=== PATIENT | male | born 1950 | race Caucasian/White ===

== ENCOUNTER 2021-02-05 14:26 | Inpatient (IN) | payer MEDICARE, MEDICAID, SELFPAY ==
[2021-02-05] VITALS (12 sets, daily range): BP systolic 130–216; BP diastolic 69–181; PULSE 50–63; RESP 15–20; TEMP 36.1–36.9; O2SAT 94–98; BMI 24.2
--- NOTE | 2021-02-05 14:37 | ECG_ITS ---
[facility] Test Date: 2021-02-05 Pat Name: Марина Dawson Department: Room: Gender: Male Certified Prosthetist: : 1950 Requested By: Jose J Ch Order Number: [id number] Arnulfo MD: Filomena Brooks M.D. Measurements Intervals [place] Rate: 50 P: 86 GA: 212 QRS: 36 QRSD: 69 T: 76 QT: 445 QTc: 408 Interpretive Statements SINUS BRADYCARDIA WITH FIRST DEGREE AV BLOCK LOW QRS VOLTAGE IN PRECORDIAL LEADS [QRS DEFLECTION < 1.0 mV IN CHEST LEADS] POSSIBLE RIGHT VENTRICULAR CONDUCTION DELAY [RSR (QR) IN V1/V2] ST DEVIATION AND MODERATE T-WAVE ABNORMALITY, CONSIDER ANTERIOR ISCHEMIA [-0.1+ mV T WAVE IN V3/V4] INTERPRETATION BASED ON A DEFAULT AGE OF 40 YEARS No previous ECG available for comparison Electronically Signed On 02-06-2021 9:46:38 CDT by Filomena Brooks M.D. [id number]
--- NOTE | 2021-02-05 14:37 | CT_ITS ---
WS: [id number] CT HEAD NONCONTRAST HISTORY: Symptoms of Acute Stroke TECHNIQUE: Contiguous axial imaging performed through the brain in 2.5 mm imaging. Bone and soft tiss ue windows. Sagittal and coronal reformats reviewed. All CT scans at [facility] use at ast one of these dose optimization techniques: automated exposure control; mA and/or kV adjustment pe r patient size (includes targeted exams where dose is matched to clinical indication); or iterative r econstruction. DLP: 4 9.26 mGy-cm. COMPARISON: None available. No acute intracranial hemorrhage, midline shift or mass effect. Mild atrophy and mild chronic microvascular ischemic disease. Lacunar infarcts in the basal ganglia b ilaterally. Ventricles: Normal size with no hydrocephalus. Paranasal sinuses: Mucoperiosteal thickening in the posterior LEFT ethmoid air cells. Mastoid air cells: Well pneumatized. Calvarium and scalp: Skull is intact with no soft tissue edema or swelling. CT/CT head wo con* [id number] IMPRESSION: 1. No acute intracranial hemorrhage or edema. 2. Mild atrophy and chronic ischemic disease. No acute infarct identified. Notified Jose J Alfred DO at 02/05/2021 2:59 PM.
--- NOTE | 2021-02-05 14:37 | XR_ITS ---
WS: [id number] Exam: XR chest 1V portable [id number] Date/Time of Exam: 02/05/2021 2:37 PM Reason For Exam: dyspnea No priors. The lungs are fully inflated and clear. Normal cardiomediastinal structures and bony elements. No ple ural effusions. XR/XR chest 1V portable [id number] IMPRESSION: 1. No acute cardiopulmonary process.
--- NOTE | 2021-02-05 14:43 | ED_ITS ---
HPI - Neuro Symptoms/Deficit General: Chief Complaint: Neuro Symptoms/Deficit Stated Complaint: neuro symptoms Time Seen by Provider: 02/05/21 14:32 History of Present Illness: HPI Narrative: 70 male brought to the emergency room by caregiver they noticed a onset of facial weakness at about noon today he was talking funny. Did not seem to aching since he has difficult time enunciating words. 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 No chest pain no recent illnesses. Onset (ago): minute(s) Time: 14:26 Last Observed Normal: 12:00 Timing confirmed by: family member Location: speech and right face (Sparing of the forehead) Severity: mild Relieving factors: none Exacerbating factors: none On Anticoagulants: No Associated symptoms: Deny chest pain, cough, diaphoresis, fevers/chills, headache(s), anorexia, malaise, nausea, seizures, short of breath, syncope, tingling, vomiting or weakness Treatments Prior to Arrival: none Review of Systems Const: Denies: malaise or diaphoresis ENMT: Denies: throat pain, ear or mastoid pain, nasal discharge or nasal congestion Card: Denies: chest pain or syncope Resp: Denies: dyspnea, productive cough or non-productive cough GI: Denies: nausea or vomiting : Denies: flank pain, dysuria, urinary frequency or urinary urgency Skin/Breast: Denies: rash or pruritus Neuro: Denies: headache(s) PFS ED PFSH: Medical History (Updated 02/06/21 @ 08:17 by Jose J Alfred DO) History of coronary artery disease History of dementia History of hypertension History of TIA (transient ischemic attack) Physical deconditioning Surgical History (Updated 02/05/21 @ 16:58 by Rito Hitchcock MD) History of coronary angioplasty with insertion of stent History of left lower extremity amputation Family History (Updated 02/05/21 @ 16:58 by Rito Hitchcock MD) Other CAD (coronary artery disease) Social History (Updated 02/05/21 @ 16:58 by Rito Hitchcock MD) Smoking and tobacco status: current every day smoker Alcohol intake: current Alcohol intake frequency: few times a week Substance/Drug Use: current Substance/Drug use type: Marijuana NIH stroke score NIHSS: Level Of Consciousness - 1a: 0 Level Of Consciousness Questions - 1b: Both Correct Level Of Consciousness Commands - 1c: Both Correct Best Gaze - 2: Normal Visual Jerome - 3: No Visual Loss Facial Palsy - 4: Partial Paralysis Motor Arm Right - 5: No Drift Motor Arm Left - 5: No Drift Motor Leg Right - 6: No Drift Motor Leg Left - 6: No Drift Limb Ataxia - 7: Absent Sensory - 8: Normal Best Language - 9: No Aphasia Dysarthia - 10: Mild/Moderate Dysarthia Extinction And Inattention - 11: 0 Score: Total Score: 3 Physical Exam Const: COMMON NORMALS: no acute distress GENERAL APPEARANCE: cooperative and comfortable ORIENTATION/CONSCIOUSNESS: Yes awake, Yes oriented to person, Yes oriented to place and Yes oriented to time HENMT: COMMON NORMALS: normocephalic, atraumatic, hearing grossly normal bilaterally and external ears normal HEAD & SCALP: normocephalic and atraumatic EXTERNAL EAR: Yes external ears normal Eye: OTHER: Unable to close the right eye. Follows commands but not able to fully close. Neck/C-Spine: COMMON NORMALS: no JVD Resp: COMMON NORMALS: normal respiratory effort, No retractions, No use of accessory muscles and clear to auscultation bilaterally AUSCULTATION: clear to auscultation bilaterally Cardio: COMMON NORMALS: no JVD, regular rate, regular rhythm and No murmurs present (Cardio) RATE: regular rate RHYTHM: regular rhythm GI: COMMON NORMALS: Soft to palpation and No hepatosplenomegaly present AUSCULTATION: Yes normoactive bowel sounds PALPATION: Yes Soft to palpation, No Tenderness to palpation present (GI), No Guarding due to palpation present (GI) and Yes No hepatosplenomegaly present Extremity: COMMON NORMALS: normal to inspection, capillary refill normal, no clubbing, cyanosis or edema, no calf tenderness and no pedal edema Neuro: SENSORIUM/ORIENTATION: Yes oriented to person, Yes oriented to place and Yes oriented to time OTHER: Stroke score as documented. He has a facial droop on the lower side of the right face has some sparing of the upper facial muscles. Skin: COMMON NORMALS: no rashes or lesions noted GENERAL SKIN EXAM: no rashes or lesions noted Course Vital Signs: Vital signs: Vital Signs Temperature 98.2 F 02/06/21 07:00 Pulse Rate 59 L 02/06/21 07:00 Respiratory Rate 16 02/06/21 07:00 Blood Pressure 137/70 02/06/21 07:00 Pulse Oximetry 92 02/06/21 03:41 MDM - Neuro Symptoms/Deficit MDM Narrative: Medical decision making narrative: On his exam is a very low stroke score of only 2 he is at the edge of the window for TPA with minor deficits. His presentation is suggestive of Zayas's palsy with the exception of description of a rather sudden onset. This is somewhat concerning I reviewed the case with the on-call neurologist from [facility] for stroke call they do not recommend TPA at this time because of the low NIH score as well as the minimal deficit. They do recommend admitting for an MRI and observation for worsening of symptoms. Lab Data: Labs: Lab Results 02/05/21 02/05/21 02/05/21 Range/Units 14:55 14:55 14:55 WBC 8.1 (4.0-10.0) 10^3/ uL RBC 5.00 (4.1-5.3) 10^6/u L Hgb 15.6 (11.7-16.6) g/dL Hct 48.3 (42.0-52.0) % MCV 96.6 H (80-94) fL MCH 31.2 (28.0-34.0) pg MCHC 32.3 (30.0-36.0) g/dL RDW 15.2 H (12.1-15.1) % Plt Count 274 (130-400) 10^3/c mm MPV 10.7 H (7.4-10.4) fL Neut % (Auto) 53.6 % Lymph % (Auto) 32.1 % [place] % (Auto) 7.4 % Eos % (Auto) 5.4 % Baso % (Auto) 1.0 % Neut # (Auto) 4.34 (1.8-7.7) 10^3/u L Lymph # (Auto) 2.6 (0.8-4.8) 10^3/u L [place] # (Auto) 0.6 (0.2-0.9) 10^3/u L Eos # (Auto) 0.4 (0.0-0.8) 10^3/u L Baso # (Auto) 0.1 (0.0-0.1) 10^3/u L Nucleated RBC % (a uto) 0 % Nucleated RBCs # 0.0 /100WBC ESR (0-10) mm/hr PT 13.70 (12.1-14.9) SECO NDS INR 1.02 (0.8-1.2) APTT 34.3 (23.9-36.7) SECO NDS Sodium 141 (136-145) mmol/L Potassium 3.7 (3.5-5.1) mmol/L Chloride 108 H (98-107) mmol/L Carbon Dioxide 23 (22-29) mmol/L Anion Gap 13.7 (5-19) BUN 11 (8-23) mg/dL Creatinine 0.6 L (0.7-1.2) mg/dL GFR Calculation Not Reportable Glucose 92 (65-115) mg/dL POC Glucose (70-110) mg/dL Calculated Osmolal ity 291 (285-295) mOsm/k g Calcium 8.8 (8.5-10.5) mg/dL Total Bilirubin 0.5 (0.15-1.2) mg/dL AST 22 (0-40) U/L ALT 18 (0-41) U/L Alkaline Phosphata se 81 (40-130) IU/L C-Reactive Protein (0.0-4.9) mg/L Total Protein 6.8 (6.6-8.7) g/dL Albumin 3.9 (3.5-5.2) g/dL Globulin 2.9 (1.3-4.6) g/dL TSH (0.27-4.20) uIU/ mL Rheumatoid Factor (0-14) IU/mL HIV 1&2 Ab & HIV 1 Ag (Non-Reactiv) HIV 1&2 Antibody (Non-Reactiv) 02/05/21 02/05/21 02/05/21 Range/Units 14:55 14:55 14:55 WBC (4.0-10.0) 10^3/ uL RBC (4.1-5.3) 10^6/u L Hgb (11.7-16.6) g/dL Hct (42.0-52.0) % MCV (80-94) fL MCH (28.0-34.0) pg MCHC (30.0-36.0) g/dL RDW (12.1-15.1) % Plt Count (130-400) 10^3/c mm MPV (7.4-10.4) fL Neut % (Auto) % Lymph % (Auto) % [place] % (Auto) % Eos % (Auto) % Baso % (Auto) % Neut # (Auto) (1.8-7.7) 10^3/u L Lymph # (Auto) (0.8-4.8) 10^3/u L [place] # (Auto) (0.2-0.9) 10^3/u L Eos # (Auto) (0.0-0.8) 10^3/u L Baso # (Auto) (0.0-0.1) 10^3/u L Nucleated RBC % (a uto) % Nucleated RBCs # /100WBC ESR 3 (0-10) mm/hr PT (12.1-14.9) SECO NDS INR (0.8-1.2) APTT (23.9-36.7) SECO NDS Sodium (136-145) mmol/L Potassium (3.5-5.1) mmol/L Chloride (98-107) mmol/L Carbon Dioxide (22-29) mmol/L Anion Gap (5-19) BUN (8-23) mg/dL Creatinine (0.7-1.2) mg/dL GFR Calculation Glucose (65-115) mg/dL POC Glucose (70-110) mg/dL Calculated Osmolal ity (285-295) mOsm/k g Calcium (8.5-10.5) mg/dL Total Bilirubin (0.15-1.2) mg/dL AST (0-40) U/L ALT (0-41) U/L Alkaline Phosphata se (40-130) IU/L C-Reactive Protein 2.0 (0.0-4.9) mg/L Total Protein (6.6-8.7) g/dL Albumin (3.5-5.2) g/dL Globulin (1.3-4.6) g/dL TSH 0.56 (0.27-4.20) uIU/ mL Rheumatoid Factor 21.0 H (0-14) IU/mL HIV 1&2 Ab & HIV 1 Ag (Non-Reactiv) HIV 1&2 Antibody (Non-Reactiv) 02/05/21 02/05/21 Range/Units 14:55 15:01 WBC (4.0-10.0) 10^3/ uL RBC (4.1-5.3) 10^6/u L Hgb (11.7-16.6) g/dL Hct (42.0-52.0) % MCV (80-94) fL MCH (28.0-34.0) pg MCHC (30.0-36.0) g/dL RDW (12.1-15.1) % Plt Count (130-400) 10^3/c mm MPV (7.4-10.4) fL Neut % (Auto) % Lymph % (Auto) % [place] % (Auto) % Eos % (Auto) % Baso % (Auto) % Neut # (Auto) (1.8-7.7) 10^3/u L Lymph # (Auto) (0.8-4.8) 10^3/u L [place] # (Auto) (0.2-0.9) 10^3/u L Eos # (Auto) (0.0-0.8) 10^3/u L Baso # (Auto) (0.0-0.1) 10^3/u L Nucleated RBC % (a uto) % Nucleated RBCs # /100WBC ESR (0-10) mm/hr PT (12.1-14.9) SECO NDS INR (0.8-1.2) APTT (23.9-36.7) SECO NDS Sodium (136-145) mmol/L Potassium (3.5-5.1) mmol/L Chloride (98-107) mmol/L Carbon Dioxide (22-29) mmol/L Anion Gap (5-19) BUN (8-23) mg/dL Creatinine (0.7-1.2) mg/dL GFR Calculation Glucose (65-115) mg/dL POC Glucose 86 (70-110) mg/dL Calculated Osmolal ity (285-295) mOsm/k g Calcium (8.5-10.5) mg/dL Total Bilirubin (0.15-1.2) mg/dL AST (0-40) U/L ALT (0-41) U/L Alkaline Phosphata se (40-130) IU/L C-Reactive Protein (0.0-4.9) mg/L Total Protein (6.6-8.7) g/dL Albumin (3.5-5.2) g/dL Globulin (1.3-4.6) g/dL TSH (0.27-4.20) uIU/ mL Rheumatoid Factor (0-14) IU/mL HIV 1&2 Ab & HIV 1 Ag Non-reactive (Non-Reactiv) HIV 1&2 Antibody Non-reactive (Non-Reactiv) Discharge Plan Discharge Patient Disposition: Placed in Observation Admit Provider: Rito Hitchcock Clinical Impression: Cerebrovascular accident, Zayas's palsy Coding Level of Care Code ED Gasoline Tester for [facility] Fwd Exam Comprehensive
[2021-02-05 15:01] LABS: Basophils # 0.1 10^3/uL (0.0-0.1); Eosinophils # 0.4 10^3/uL (0.0-0.8); Eosinophils % 5.4 %; Hematocrit 48.3 % (42.0-52.0); Hemoglobin 15.6 g/dL (11.7-16.6); Lymphocytes # 2.6 10^3/uL (0.8-4.8); Lymphocytes % 32.1 %; Mean Corpuscular HGB Conc 32.3 g/dL (30.0-36.0); Mean Corpuscular Hemoglobin 31.2 pg (28.0-34.0); Mean Corpuscular Volume 96.6 fL (80-94); Mean Platelet Volume 10.7 fL (7.4-10.4); Monocytes # 0.6 10^3/uL (0.2-0.9); Monocytes % 7.4 %; Neutrophils # 4.34 10^3/uL (1.8-7.7); Neutrophils % 53.6 %; Nucleated Red Blood Cells % 0 %; Platelet Count 274 10^3/cmm (130-400); Red Cell Distribution Width 15.2 % (12.1-15.1); White Blood Count 8.1 10^3/uL (4.0-10.0)
--- NOTE | 2021-02-05 15:13 | PC.NURSE ---
pt showing hypertensive. retook BP on another machine and pt was normotensive. pt not given labetalol.
[2021-02-05 15:15] LABS: Glucose Point of Care 86 mg/dL (70-110)
[2021-02-05 15:15] LABS: INR 1.02 (0.8-1.2)
[2021-02-05 15:16] LABS: Partial Thromboplastin Time 34.3 SECONDS (23.9-36.7)
[2021-02-05 15:25] LABS: Alanine Aminotransferase 18 U/L (0-41); Albumin Level 3.9 g/dL (3.5-5.2); Alkaline Phosphatase 81 IU/L (40-130); Anion Gap 13.7 (5-19); Aspartate Amino Transferase 22 U/L (0-40); Blood Urea Nitrogen 11 mg/dL (8-23); Calcium 8.8 mg/dL (8.5-10.5); Carbon Dioxide 23 mmol/L (22-29); Chloride 108 mmol/L (98-107); Globulin 2.9 g/dL (1.3-4.6); Glucose 92 mg/dL (65-115); Osmolality Calculated 291 mOsm/kg (285-295); Potassium 3.7 mmol/L (3.5-5.1); Sodium 141 mmol/L (136-145); Total Bilirubin 0.5 mg/dL (0.15-1.2); Total Protein 6.8 g/dL (6.6-8.7)
--- NOTE | 2021-02-05 15:47 | MRR_ITS ---
PROCEDURE INFORMATION: Exam: MR Head Without Contrast Exam date and time: 02/05/2021 5:56 PM Age: 70 years old Clinical indication: Weakness, facial; Patient HX: Right side facial droop, possible CVA; Additional info: PT did not tolerate mri well. I packed his head with cushions and spoke with him about the importance of holding still. PT. Would not allow any extra time to repeat any of the images. TECHNIQUE: Imaging protocol: MR of the head without contrast. Total images: 215 COMPARISON: CT head wo con* [id number] 02/05/2021 2:35 PM FINDINGS: Limitations: Motion artifact. Brain: Cerebral and cerebellar atrophy with ventricular dilatation greater than that anticipated for patient's chronological age. No abnormal signal on the diffusion-weighted sequence to suggest restrictive diffusion or cytotoxic edema thus no evidence of active or acute intracranial pathologic process. No definitive evidence for acute or subacute infarction, hemorrhagic event, mass or neoplastic process, vascular malformation, generalized edema or demyelination evident. Moderate small vessel ischemic disease with senile periventricular leukomalacia. Cerebral ventricles: Normal. No ventriculomegaly. Bones/joints: Unremarkable. Paranasal sinuses: No visible active paranasal sinus disease. Mastoid air cells: Normal as visualized. No mastoid effusion. Orbital cavity: Orbital structures as imaged intact. Soft tissues: Unremarkable. MR/MR head wo con* [id number] IMPRESSION: 1. No definitive evidence of acute intracranial pathologic process. 2. Motion artifact limits diagnostic quality of this evaluation.
--- NOTE | 2021-02-05 16:50 | PM.HP ---
Providers/Chief Complaint Admitting Physician: Rito Hitchcock MD Chief Complaint: neuro symptoms History of Present Illness Марина Dawson is a 70 year old male with a past medical history of CAD status post stenting x1, history of left below-knee amputation for infection/sepsis, dementia, history of transient ischemic attack 1 year ago transferred to [facility], who is currently under the care of a family friend, who is a COMMUNITY HEALTH PROGRAM COORDINATOR, he requires total assistance of activities of daily living by family friend, does not ambulate, is wheelchair-bound, requires assistance with feeding, activities of daily living, transfers, his dementia has been stable for the last year or so, no slow decline, no recent hospitalizations, is a smoker. According to patient, he lives with his family friend, and his who is a COMMUNITY HEALTH PROGRAM COORDINATOR, who is his caregiver, his day-to-day activity is watching TV, staying around the house, he is dependent on the COMMUNITY HEALTH PROGRAM COORDINATOR for activities of daily living. LAKSHMI tells me that last night, his cheeks seem much more puffy than usual, but they diagnosed notice anything in particular, he went to bed at about 1030. She came in this morning at about 8, and he told her that she he had stayed up all night so he wanted to sleep in a little bit, so she left and came back at around noon or so, when he told her that he thought he had a stroke, due to right-sided facial droop and inability to close his eyelid, no weakness on the right side no right upper or right lower extremity weakness, no paresthesias, no slurring of his speech, no visual deficits,. COMMUNITY HEALTH PROGRAM COORDINATOR does tell me that he had generalized weakness, for the last year, that has not changed significantly. In the emergency room, patient NIH stroke scale was 2, he was out of the TPA window, neurologist at [facility] recommended inpatient monitoring, with an MRI. Hospitalist team was called for admission for Zayas's palsy versus CVA. During my examination he is actually quite strong on the right side, right upper right lower extremity, he does have a right facial droop, moderate, with inability to fully close right eyelid, no slurring of her speech. COMMUNITY HEALTH PROGRAM COORDINATOR does tell me that roughly 2 weeks ago, he had a spider bite to the chest, they do get frequent takes in the house, they have dogs, but she tells me that she base him regularly, did not notice any tick bites except the spider bite on the his chest. Review of Systems Const: Denies: fever(s), chills, fatigue or malaise Eyes: Denies: change in vision or blurry vision ENMT: Denies: throat pain or nasal congestion Card: Denies: chest pain, palpitations, irregular heart rhythm, edema, lightheadedness, pre-syncope, dyspnea on exertion or orthopnea Resp: Denies: dyspnea, productive cough, non-productive cough or wheezing GI: Denies: abdominal pain, nausea, vomiting, hematemesis, diarrhea, constipation, hematochezia or melena : Denies: flank pain, difficulty urinating, dysuria or urinary frequency Musc: Denies: neck pain, back pain or extremity pain Skin/Breast: Reports: rash Neuro: Reports: difficulty walking; Denies: headache(s), numbness in extremities, weakness in extremities, sensory changes, lack of coordination, frequent falls, dizziness, vertigo, confusion, Slurred speech present or difficulty communicating thoughts Psych: Denies: anxiety or depression Endo: Denies: polyuria or polydipsia Medications/Allergies Home Medications Medication Instructions Recorded Confirmed Last Taken Type clopidogrel 75 mg PO DAILY 02/05/21 02/05/21 02/05/21 History donepezil 10 mg PO DAILY 02/05/21 02/05/21 02/05/21 History escitalopram oxalate 10 mg PO DAILY 02/05/21 02/05/21 02/05/21 History ipratropium-albuterol [Combivent 1 puff INHALATION DAILY 02/05/21 02/05/21 02/05/21 History Respimat] multivitamin 1 tab PO DAILY 02/05/21 02/05/21 02/05/21 History Allergies Allergy/AdvReac Type Severity Reaction Status Date / Time Penicillins Allergy Unknown Unknown Verified 02/05/21 15:40 PFSH Acute PFSH: Medical History (Updated 02/05/21 @ 17:00 by Rito Hitchcock MD) History of coronary artery disease History of dementia History of hypertension History of TIA (transient ischemic attack) Physical deconditioning Surgical History (Updated 02/05/21 @ 16:58 by Rito Hitchcock MD) History of coronary angioplasty with insertion of stent History of left lower extremity amputation Family History (Updated 02/05/21 @ 16:58 by Rito Hitchcock MD) Other CAD (coronary artery disease) Social History (Updated 02/05/21 @ 16:58 by Rito Hitchcock MD) Smoking and tobacco status: current every day smoker Alcohol intake: current Alcohol intake frequency: few times a week Substance/Drug Use: current Substance/Drug use type: Marijuana Vitals/I&O/Wt Last Vital Signs Temp 97.0 F L 02/05/21 14:33 Pulse 50 L 02/05/21 16:40 Resp 20 H 02/05/21 16:40 BP 130/69 02/05/21 16:40 Pulse Ox 97 02/05/21 16:40 Weight last 48 hrs Weight 68.039 kg Physical Exam Const: COMMON NORMALS: no acute distress and patient oriented x3 GENERAL APPEARANCE: cooperative and comfortable HENMT: COMMON NORMALS: normocephalic HEAD & SCALP: normocephalic Eye: COMMON NORMALS: Equal, round and reactive pupils present and EOMs intact bilaterally GENERAL EYE: appearance normal, both eyes and all related structures PUPIL: Yes Equal, round and reactive pupils present Neck/C-Spine: COMMON NORMALS: full ROM and no lymphadenopathy THYROID: Thyroid normal Lymph: LYMPHATIC: no lymphadenopathy noted Resp: COMMON NORMALS: normal respiratory effort, No retractions, No use of accessory muscles and clear to auscultation bilaterally AUSCULTATION: clear to auscultation bilaterally Cardio: COMMON NORMALS: regular rate, regular rhythm, S1 normal heart sound present, S2 normal heart sound present, No gallops present (Cardio), No clicks present (Cardio) and No murmurs present (Cardio) RATE: regular rate RHYTHM: regular rhythm HEART SOUNDS: S1 normal heart sound present and S2 normal heart sound present GI: COMMON NORMALS: Normal to inspection, nondistended, normoactive bowel sounds present, Soft to palpation, non-tender and No hepatosplenomegaly present PALPATION: Yes Soft to palpation and Yes No hepatosplenomegaly present Extremity: COMMON NORMALS: normal to inspection, full ROM and no pedal edema Neuro: COMMON NORMALS: patient oriented x3, moves all extremities, no focal motor deficits and no sensory deficits noted CRANIAL NERVES: Yes pupillary reactivity/size COORDINATION/BALANCE: No [id number]-[id number] test normal SPEECH: speech normal OTHER: Right facial droop, moderate Right upper face, slight inability to frown, inability to fully close right eyelid Psych: COMMON NORMALS: mental status grossly normal, Normal thought process present and cooperative THOUGHT PROCESS: Normal thought process present Data : 02/05/21 14:55 02/05/21 14:55 A&P Assessment and plan (1) Facial droop: -Right lower face facial droop, sparing of forehead, inability to close right eyelid fully, moderate -Did have a spider bite roughly 2 weeks ago -No history of shingles, no history of HIV, no history of ear pain or otitis media -Does have a history of TIA -Initial CT of the head no acute stroke, intracranial bleed -NIH stroke scale 2, out of TPA window, neurologist at [facility] contacted, recommended inpatient monitoring with MRI -Differential includes CVA versus Zayas's palsy Plan: -Admit to general medical floors -Stat MRI -Cardiac echo, carotid artery ultrasound, telemetry monitoring -TSH, tick panel, PAUL, HIV -Continue aspirin 81 mg, Plavix 75 mg, statin -For now allow for permissive hypertension, treat systolic blood pressure greater than 220, diastolic of greater than 120 -Gentle IV hydration -Neurochecks, swallow eval, PT OT, speech therapy eval -We will start prednisone 80 mg daily -Requires eye care, artificial tears every 4 hours -We will start doxycycline 100 mg twice daily -Patient's facial droop is moderate, will continue to monitor, consider starting acyclovir -Full code -Lovenox for DVT prophylaxis Status: Acute (2) History of coronary artery disease: Status: Acute (3) Physical deconditioning: Status: Acute (4) History of dementia: Status: Acute (5) History of hypertension: Status: Acute (6) History of TIA (transient ischemic attack): Status: Acute Attestations Medical Necessity Statement*: Patient requires hospitalization outpatient with observation, for facial droop concerning for Zayas's palsy versus CVA Coding Level of Care Code 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
[2021-02-05 19:23] LABS: Thyroid Stimulating Hormone 0.56 uIU/mL (0.27-4.20)
[2021-02-05 19:30] LABS: HIV 1 & 2 Antibody Non-Reactive (Non-Reactiv); HIV 1 & 2 Antigen Non-Reactive (Non-Reactiv)
[2021-02-05] MEDS: aspirin 81 mg EC Tablet PO (19:40)
[2021-02-05] MEDS: pantoprazole DR 40 mg Tablet PO (19:40)
[2021-02-05] MEDS: predniSONE 20 mg Tablet 80 MG PO (19:40)
[2021-02-05] MEDS: sodium chloride 0.9% 1,000 ML 75 ML IV (19:41)
[2021-02-05 19:49] LABS: Erythrocyte Sedimentation Rate 3 mm/hr (0-10)
[2021-02-05] MEDS: enoxaparin 40 mg/0.4 mL Syringe SUBCUT (21:25)
[2021-02-05] MEDS: doxycycline 100 MG in sodium chloride 0.9% (plus) 100 ML IV (21:25)
[2021-02-05] MEDS: donepezil 5 MG Tablet 10 MG PO (21:26)
[2021-02-05] MEDS: atorvastatin 40 mg Tablet PO (21:26)
[2021-02-06] VITALS (19 sets, daily range): BP systolic 133–160; BP diastolic 65–74; PULSE 49–118; RESP 16–20; TEMP 36.3–36.8; O2SAT 90–96
[2021-02-06] MEDS: artificial tears Op Soln 15 mL Btl 1 DROP EYE-RIGHT ×2 (02:39→10:51)
[2021-02-06 07:03] LABS: Basophils % 0.5 %; Eosinophils % 0.2 %; Hematocrit 45.7 % (42.0-52.0); Hemoglobin 14.8 g/dL (11.7-16.6); Lymphocytes # 0.9 10^3/uL (0.8-4.8); Mean Corpuscular HGB Conc 32.4 g/dL (30.0-36.0); Mean Corpuscular Hemoglobin 30.9 pg (28.0-34.0); Mean Corpuscular Volume 95.4 fL (80-94); Mean Platelet Volume 10.6 fL (7.4-10.4); Monocytes # 0.1 10^3/uL (0.2-0.9); Monocytes % 1.4 %; Neutrophils # 3.39 10^3/uL (1.8-7.7); Neutrophils % 77.2 %; Nucleated Red Blood Cells % 0 %; Platelet Count 226 10^3/cmm (130-400); Red Blood Count 4.79 10^6/uL (4.1-5.3); Red Cell Distribution Width 14.9 % (12.1-15.1); White Blood Count 4.4 10^3/uL (4.0-10.0)
[2021-02-06 07:41] LABS: Alanine Aminotransferase 14 U/L (0-41); Alkaline Phosphatase 69 IU/L (40-130); Blood Urea Nitrogen 11 mg/dL (8-23); Calcium 8.6 mg/dL (8.5-10.5); Carbon Dioxide 21 mmol/L (22-29); Chloride 111 mmol/L (98-107); Cholesterol 73 mg/dL (0-200); Globulin 2.9 g/dL (1.3-4.6); Glucose 144 mg/dL (65-115); HDL Cholesterol 43 mg/dL (60-100); LDL Cholesterol Calculated 24 mg/dL (50-129); LDL HDL Ratio 0.56 RATIO (0.00-3.22); Magnesium 2.1 mg/dL (1.7-2.3); NT Pro B Type Natriuretic Pept 616 pg/mL (0-125); Osmolality Calculated 294 mOsm/kg (285-295); Phosphorus 2.9 mg/dL (2.5-4.5); Sodium 141 mmol/L (136-145); Total Bilirubin 0.4 mg/dL (0.15-1.2); Total Protein 5.9 g/dL (6.6-8.7); Triglycerides 28 mg/dL (0-150)
[2021-02-06 08:11] LABS: Anion Gap 13.4 (5-19); Aspartate Amino Transferase 26 U/L (0-40); Potassium 4.4 mmol/L (3.5-5.1)
[2021-02-06 09:19] LABS: Estmated Average Glucose 97
--- NOTE | 2021-02-06 10:12 | ECG_ITS ---
[facility] ED Test Date: 2021-02-06 Pat Name: Марина Dawson Department: Room: 276 Gender: Male Section Hand Helper: : 1950 Requested By: Rito Hitchcock Order Number: [id number] Arnulfo MD: Filomena Brooks M.D. Measurements Intervals [place] Rate: 49 P: MN: QRS: -11 QRSD: 67 T: 59 QT: 456 QTc: 412 Interpretive Statements Possibly sinus bradycardia Interpretation limited by baseline artifact LOW QRS VOLTAGE IN EXTREMITY LEADS [QRS DEFLECTION < 0.5 mV IN LIMB LEADS] POSSIBLE RIGHT VENTRICULAR CONDUCTION DELAY [RSR (QR) IN V1/V2] Compared to ECG 02/05/2021 15:11:40 Sinus bradycardia no longer present First degree AV block no longer present T-wave abnormality no longer present Possible ischemia no longer present Electronically Signed On 02-17-2021 16:31:13 CDT by Filomena Brooks M.D. [id number]
[2021-02-06] MEDS: nicotine 21 mg Patch 1 PATCH TRANSDERMA (10:49)
--- NOTE | 2021-02-06 10:49 | CTR_ITS ---
PROCEDURE INFORMATION: Exam: CT Angiography Head With Contrast, Arteriography Exam date and time: 02/06/2021 12:30 PM Age: 70 years old Clinical indication: Abnormal findings; Abnormal carotid US; Patient HX: L stenosis by doppler; Additional info: Critical stenosis left carotid TECHNIQUE: Imaging protocol: Computed tomography angiography of the head with contrast. Exam focused on the arteries. 3D rendering (Not supervised by radiologist): MIP and/or 3D reconstructed images were created by the technologist. Radiation optimization: All CT scans at this facility use at least one of these dose optimization techniques: automated exposure control; mA and/or kV adjustment per patient size (includes targeted exams where dose is matched to clinical indication); or iterative reconstruction. Contrast material: OMNI 350; Contrast volume: 95 ml; Contrast route: INTRAVENOUS (IV); COMPARISON: CT head wo con* [id number] 02/05/2021 2:35 PM RADIATION DOSE METRICS: Total DLP (mGy-cm): 2174.91 FINDINGS: ANTERIOR CIRCULATION: Right internal carotid artery: Scattered atherosclerotic plaque with luminal irregularity. Intracranial segment is patent with no significant stenosis. No aneurysm. Right middle cerebral artery: Unremarkable. No occlusion or significant stenosis. No aneurysm. Right anterior cerebral artery: Unremarkable. No occlusion or significant stenosis. No aneurysm. Left internal carotid artery: Scattered atherosclerotic plaque with luminal irregularity. Intracranial segment is patent with no significant stenosis. No aneurysm. Left middle cerebral artery: Unremarkable. No occlusion or significant stenosis. No aneurysm. Left anterior cerebral artery: Unremarkable. No occlusion or significant stenosis. No aneurysm. POSTERIOR CIRCULATION: Right vertebral artery: Patient is left vertebral artery dominant with a hypoplastic intracranial right vertebral artery. This is a normal variant. Left vertebral artery: Patient is left vertebral artery dominant with a hypoplastic intracranial right vertebral artery. This is a normal variant.No occlusion or significant stenosis. No aneurysm. Basilar artery: Unremarkable. No occlusion or significant stenosis. No aneurysm. Right posterior cerebral artery: Unremarkable. No occlusion or significant stenosis. No aneurysm. Left posterior cerebral artery: Unremarkable. No occlusion or significant stenosis. No aneurysm. Brain: No definite mass, mass effect, or midline shift. Cerebral ventricles: No ventriculomegaly. Bones/joints: Unremarkable. No acute fracture. Soft tissues: Unremarkable. Other findings: No occlusion or significant stenosis. No aneurysm. IMPRESSION: No large vessel stenosis or occlusion. PROCEDURE INFORMATION: Exam: CT Angiography Neck With Contrast Exam date and time: 02/06/2021 12:30 PM Age: 70 years old Clinical indication: Abnormal findings; Abnormal carotid US; Patient HX: L stenosis by doppler; Additional info: Critical stenosis left carotid TECHNIQUE: Imaging protocol: Computed tomography angiography of the neck with contrast. 3D rendering (Not supervised by radiologist): MIP and/or 3D reconstructed images were created by the technologist. Radiation optimization: All CT scans at this facility use at least one of these dose optimization techniques: automated exposure control; mA and/or kV adjustment per patient size (includes targeted exams where dose is matched to clinical indication); or iterative reconstruction. Contrast material: OMNI 350; Contrast volume: 95 ml; Contrast route: INTRAVENOUS (IV); COMPARISON: CT head wo con* [id number] 02/05/2021 2:35 PM RADIATION DOSE METRICS: Total DLP (mGy-cm): 2174.91 FINDINGS: Right common carotid artery: No stenosis. No dissection or occlusion. Right internal carotid artery: No stenosis of the extracranial segment. No dissection or occlusion. Right external carotid artery: No occlusion or stenosis of the origin. Left common carotid artery: No stenosis. No dissection or occlusion. Left internal carotid artery: No stenosis of the extracranial segment. No dissection or occlusion. Left external carotid artery: No occlusion or stenosis of the origin. Right vertebral artery: No stenosis. No dissection or occlusion. Left vertebral artery: No stenosis. No dissection or occlusion. Soft tissues: Normal. No significant soft tissue swelling. Bones/joints: There are degenerative changes in the visualized spine. CT/CT angio headneck* [id number] IMPRESSION: No stenosis or occlusion. REFERENCES: NASCET CRITERIA. The degree of internal carotid artery stenosis is based on NASCET criteria. Normal is no stenosis. Mild is less than 50% stenosis. Moderate is 50-69% stenosis. Severe is 70% to 99% stenosis. Total occlusion is no detectable patent lumen. Radiation Dose CTDIVOL = (mGy): DLP = 2174.91~2174.91 (mGy-cm)
[2021-02-06] MEDS: escitalopram 10 mg Tablet PO (10:50)
[2021-02-06] MEDS: predniSONE 20 mg Tablet 80 MG PO (10:50)
[2021-02-06] MEDS: multivitamin therapeutic Tablet 1 TAB PO (10:50)
[2021-02-06] MEDS: clopidogrel 75 mg Tablet PO (10:50)
[2021-02-06] MEDS: aspirin 81 mg EC Tablet PO (10:50)
[2021-02-06] MEDS: pantoprazole DR 40 mg Tablet PO (10:50)
[2021-02-06] MEDS: doxycycline 100 MG in sodium chloride 0.9% (plus) 100 ML IV ×2 (10:51→21:46)
[2021-02-06] MEDS: sodium chloride 0.9% 1,000 ML 75 ML IV (10:52)
--- NOTE | 2021-02-06 12:12 | ECG_ITS ---
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 Measurements Intervals [place] Rate: 52 P: DC: QRS: 10 QRSD: 65 T: 55 QT: 421 QTc: 394 Interpretive Statements SUPRAVENTRICULAR BRADYCARDIA LOW QRS VOLTAGE [QRS DEFLECTION < 0.5/1.0 mV IN LIMB/CHEST LEADS] POSSIBLE RIGHT VENTRICULAR CONDUCTION DELAY [RSR (QR) IN V1/V2] JUNCTIONAL ST DEPRESSION, CONSIDER NORMAL VARIANT [0.1+ mV JUNCTIONAL DEPRESSION] Compared to ECG 02/06/2021 10:21:19 ST (T wave) deviation now present Atrial fibrillation no longer present Electronically Signed On 02-17-2021 22:12:05 CDT by Filomena Brooks M.D. [id number]
--- NOTE | 2021-02-06 13:57 | PM.PN ---
Subjective Subjective: Interval history: This morning patient was examined, he continues to have right-sided facial droop, about the same compared to yesterday, inability to close right eyelid, about the same compared to yesterday, no slurring of her speech, follows all commands, no right-sided weakness that I can discern, he is incontinent of urine, which is chronic for him, is alert to person, place, not to time, which is his baseline, no acute events overnight, Vitals/I&O/Wt Last Vital Signs Temp 97.8 F 02/06/21 12:00 Pulse 74 02/06/21 12:00 Resp 16 02/06/21 12:00 BP 133/67 02/06/21 12:00 Pulse Ox 94 02/06/21 12:00 02/05/21 02/06/21 02/06/21 22:59 06:59 14:59 Intake Total 200 / 200 100 / 300 1000 / 1000 Balance 200 / 200 100 / 300 1000 / 1000 Weight last 48 hrs Weight 68.039 kg Physical Exam Const: COMMON NORMALS: no acute distress and alert GENERAL APPEARANCE: cooperative and comfortable ORIENTATION/CONSCIOUSNESS: Yes oriented to person and Yes oriented to place; not oriented to time Resp: COMMON NORMALS: normal respiratory effort, No retractions, No use of accessory muscles and clear to auscultation bilaterally AUSCULTATION: clear to auscultation bilaterally Cardio: COMMON NORMALS: regular rate, regular rhythm, S1 normal heart sound present, S2 normal heart sound present and No murmurs present (Cardio) RATE: regular rate RHYTHM: regular rhythm HEART SOUNDS: S1 normal heart sound present and S2 normal heart sound present GI: COMMON NORMALS: Normal to inspection, nondistended, normoactive bowel sounds present Extremity: COMMON NORMALS: no pedal edema Neuro: COMMON NORMALS: moves all extremities, no focal motor deficits and no sensory deficits noted SENSORIUM/ORIENTATION: Yes alert, Yes oriented to person, Yes oriented to place and No oriented to time CRANIAL NERVES: Yes pupillary reactivity/size SPEECH: speech normal OTHER: Right facial droop, moderate Right upper face, slight inability to frown, inability to fully close right eyelid Psych: COMMON NORMALS: mental status grossly normal, Normal thought process present and cooperative THOUGHT PROCESS: Normal thought process present Data : 02/06/21 06:09 02/06/21 06:09 A&P Assessment and plan (1) Facial droop: -Right lower face facial droop, sparing of forehead, inability to close right eyelid fully, moderate -Did have a spider bite roughly 2 weeks ago -No history of shingles, no history of HIV, no history of ear pain or otitis media -Does have a history of TIA -Initial CT of the head no acute stroke, intracranial bleed -NIH stroke scale 2, out of TPA window, neurologist at [facility] contacted, recommended inpatient monitoring with MRI -Differential includes CVA versus Zayas's palsy -MRI of the head and brain no acute findings -Carotid artery ultrasound shows greater than 70% left ICA stenosis -TSH within normal limits, HIV negative, rheumatoid factor elevated Plan: -Admit to general medical floors -We will order CT angiogram of the head and neck -Cardiac echo, telemetry monitoring -PAUL -Continue aspirin 81 mg, Plavix 75 mg, statin -For now allow for permissive hypertension, treat systolic blood pressure greater than 220, diastolic of greater than 120 -Gentle IV hydration -Neurochecks, swallow eval, PT OT, speech therapy eval -Continue prednisone 80 mg daily -Requires eye care, artificial tears every 4 hours -Continue doxycycline 100 mg twice daily -Patient's facial droop is moderate, will continue to monitor, consider starting acyclovir -Full code -Lovenox for DVT prophylaxis Status: Acute (2) History of coronary artery disease: Status: Acute (3) Physical deconditioning: Status: Acute (4) History of dementia: Status: Acute (5) History of hypertension: Status: Acute (6) History of TIA (transient ischemic attack): Status: Acute Attestations Medical Necessity Statement*: Patient requires hospitalization, inpatient, greater than 2 midnights, for Zayas's palsy versus CVA, severe left carotid artery stenosis Coding Level of Care Code 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
[2021-02-06 14:03] LABS: Troponin(5th) Baseline 16 ng/L (0-15)
[2021-02-06] MEDS: iohexol 350 mg/mL 100 mL Btl IV (15:50)
--- NOTE | 2021-02-06 16:12 | ECG_ITS ---
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 Measurements Intervals [place] Rate: 56 P: 52 WV: 180 QRS: -9 QRSD: 61 T: 41 QT: 444 QTc: 429 Interpretive Statements SINUS BRADYCARDIA LOW QRS VOLTAGE [QRS DEFLECTION < 0.5/1.0 mV IN LIMB/CHEST LEADS] POSSIBLE RIGHT VENTRICULAR CONDUCTION DELAY [RSR (QR) IN V1/V2] Compared to ECG 02/06/2021 12:47:33 ST (T wave) deviation no longer present Electronically Signed On 02-17-2021 22:11:42 CDT by Filomena Brooks M.D. [id number]
--- NOTE | 2021-02-06 18:39 | USR_ITS ---
PROCEDURE INFORMATION: Exam: US Duplex Bilateral Extracranial Arteries Exam date and time: 02/06/2021 9:13 AM Age: 70 years old Clinical indication: Other: Right facila droop; Additional info: Cvs vs bells palsy TECHNIQUE: Imaging protocol: Real-time Duplex ultrasound scan of the bilateral carotid and vertebral arteries combining back scale, color Doppler and spectral waveform analysis. Bilateral exam. COMPARISON: CT head wo con* [id number] 02/05/2021 2:35 PM FINDINGS: Right common carotid artery: Unremarkable. No occlusion or stenosis. Waveforms are normal. Right internal carotid artery: Unremarkable. No occlusion or stenosis. Waveforms are normal. Right ICA/CCA ratio: Within normal limits. Right external carotid artery: No stenosis in the origin. Right vertebral artery: Unremarkable. Antegrade flow. Left common carotid artery: There is minimal atherosclerotic plaque in the carotid bulb. No occlusion or stenosis. Waveforms are normal. Left internal carotid artery: There is prominent severe homogeneous atherosclerotic plaque in the proximal left internal carotid artery. The peak systolic velocity is significantly elevated at 459 cm/s. The ICA/CCA ratio is significantly elevated at 12.71. There is prominent spectral broadening of the left internal carotid wave form. These findings are consistent with greater than 70% stenosis. Left ICA/CCA ratio: Within normal limits. Left external carotid artery: No stenosis in the origin. Left vertebral artery: Unremarkable. Antegrade flow. US/CV carotid duplex BI* [id number] IMPRESSION: 1. Prominent atherosclerotic plaque in the proximal left internal carotid artery with severe greater than 70 for% stenosis. 2. No hemodynamically significant stenosis in the right carotid artery. REFERENCES: SRU CRITERIA. The degree of internal carotid artery stenosis is based on criteria defined by the Society of Radiologists in Ultrasound (SRU). Normal is no stenosis. Mild is less than 50% stenosis. Moderate is 50-69% stenosis. Severe is greater than 69% stenosis to near occlusion. Near occlusion is a markedly narrowed lumen. Total occlusion is no detectable patent lumen.
--- NOTE | 2021-02-06 18:39 | USCV_ITS ---
[facility]ir [facility] Age: 70 Gender: M : 1950 Exam Date: 02/06/2021 09:53 Ordering Phys: Rito Hitchcock MD Technologist: Amanda Curry [place] [facility] [place]ication: CVA vs [place] Palsy BP: 137 / 70 HR: 48 Rhythm: Sinus Bradycardia Technical Quality: Technically difficult study MEASUREMENTS (Male / Female) Normal Values 2D ECHO LV Diastolic Diameter PLAX 2.7 cm 4.2 - 5.9 / 3.9 - 5.3 cm LV Systolic Diameter PLAX 1.8 cm LV Chamber Size 3.1 cm IVS Diastolic Thickness 1.3 cm 0.6 - 1.0 / 0.6 - 0.9 cm IVS Systolic Thickness 2.6 cm LVPW Diastolic Thickness 1.3 cm 0.6 - 1.0 / 0.6 - 0.9 cm LVPW Systolic Thickness 1.4 cm RV Chamber Size 1.7 cm LVOT Diameter 1.8 cm LV Ejection Fraction 2D Teich 62.3 % LA Diameter 1.6 cm LA Width 2.4 cm LA Height 4.2 cm RA Width 2.4 cm RA Height 4.8 cm M-MODE LV Diastolic Diameter MM 3.3 cm 4.2 - 5.9 / 3.9 - 5.3 cm LV Systolic Diameter MM 1.9 cm LV Ejection Fraction MM Teich 74.1 % IVS Diastolic Thickness MM 1.1 cm 0.6 - 1.0 / 0.6 - 0.9 cm IVS Systolic Thickness MM 1.5 cm LVPW Diastolic Thickness MM 1.2 cm 0.6 - 1.0 / 0.6 - 0.9 cm LVPW Systolic Thickness MM 1.7 cm RV Diastolic Diameter MM 1.5 cm DOPPLER AV Peak Velocity 145.0 cm/s LVOT Peak Velocity 92.0 cm/s AV Area Cont Eq vti 1.8 cm squared AV Area Cont Eq pk 1.6 cm squared MV Area PHT 2.9 cm squared Mitral E to A Ratio 1.3 MV E' Velocity 53.0 cm/s Mitral E to MV E' Ratio 13.6 Mitral E to LV E' Lateral Ratio 13.6 Mitral E to LV E' Septal Ratio 13.6 TV Peak E Velocity 60.0 cm/s Right Atrial Pressure 3.0 mmHg FINDINGS Left Ventricle Normal left ventricular size. LV systolic function is normal with EF of 55-60%. No regional wall motion abnormalities. Normal diastolic filling pattern. Right Ventricle The right ventricle is normal in size and function. Right Atrium The right atrium is normal in size. Left Atrium The left atrium is normal in size. Mitral Valve Structurally normal mitral valve without significant stenosis or prolapse. There is mild mitral regurgitation. Aortic Valve Structurally normal aortic valve without significant sclerosis or stenosis. There is mild aortic regurgitation. Tricuspid Valve Structurally normal tricuspid valve without significant stenosis or regurgitation. Insufficient TR jet to calculate RVSP Pulmonic Valve Structurally normal pulmonic valve without significant stenosis. There is no pulmonic regurgitation. Pericardium Normal pericardium without effusion. Aorta Not well visualized CONCLUSIONS LV sustolic function is normal with EF of 55-60% Diastolic function is normal Mild aortic regurgitation. Mild mitral regurgitation No comparison studies are normal Jaswinder Mccabe MD (Electronically Signed) Final Date: 07 Feb 2021 17:50 S
[2021-02-06 19:47] LABS: Troponin(5th) Baseline 14 ng/L (0-15)
[2021-02-06] MEDS: enoxaparin 40 mg/0.4 mL Syringe SUBCUT (21:46)
[2021-02-06] MEDS: donepezil 5 MG Tablet 10 MG PO (21:46)
[2021-02-06] MEDS: atorvastatin 40 mg Tablet PO (21:46)
[2021-02-06] MEDS: acetaminophen 325 mg Tablet 650 MG PO (22:25)
[2021-02-07] VITALS (11 sets, daily range): BP systolic 139–157; BP diastolic 56–65; PULSE 48–96; RESP 18–20; TEMP 36.4–37; O2SAT 90–96
[2021-02-07 01:53] LABS: Troponin 5 6HR 11.29 ng/L (0-15)
[2021-02-07 01:54] LABS: Troponin 5 6HR Delta -2.71 ng/L (0-12)
[2021-02-07 07:17] LABS: Basophils % 0.2 %; Hematocrit 49.7 % (42.0-52.0); Hemoglobin 15.3 g/dL (11.7-16.6); Lymphocytes % 10.7 %; Mean Corpuscular HGB Conc 30.8 g/dL (30.0-36.0); Mean Corpuscular Volume 100.6 fL (80-94); Mean Platelet Volume 11.4 fL (7.4-10.4); Monocytes # 0.5 10^3/uL (0.2-0.9); Monocytes % 4.6 %; Neutrophils # 8.19 10^3/uL (1.8-7.7); Neutrophils % 83.9 %; Nucleated Red Blood Cells % 0 %; Platelet Count 206 10^3/cmm (130-400); Red Blood Count 4.94 10^6/uL (4.1-5.3); Red Cell Distribution Width 15.4 % (12.1-15.1); White Blood Count 9.8 10^3/uL (4.0-10.0)
[2021-02-07] MEDS: nicotine 21 mg Patch 1 PATCH TRANSDERMA (09:13)
[2021-02-07] MEDS: clopidogrel 75 mg Tablet PO (09:13)
[2021-02-07] MEDS: pantoprazole DR 40 mg Tablet PO (09:13)
[2021-02-07] MEDS: aspirin 81 mg EC Tablet PO (09:13)
[2021-02-07] MEDS: escitalopram 10 mg Tablet PO (09:13)
[2021-02-07] MEDS: predniSONE 20 mg Tablet 80 MG PO (09:13)
[2021-02-07] MEDS: doxycycline 100 MG in sodium chloride 0.9% (plus) 100 ML IV (09:13)
[2021-02-07] MEDS: multivitamin therapeutic Tablet 1 TAB PO (09:13)
[2021-02-07 10:26] LABS: Alanine Aminotransferase 14 U/L (0-41); Albumin Level 3.7 g/dL (3.5-5.2); Alkaline Phosphatase 72 IU/L (40-130); Aspartate Amino Transferase 19 U/L (0-40); Blood Urea Nitrogen 18 mg/dL (8-23); Carbon Dioxide 22 mmol/L (22-29); Chloride 114 mmol/L (98-107); Globulin 2.7 g/dL (1.3-4.6); Glucose 121 mg/dL (65-115); Magnesium 2.1 mg/dL (1.7-2.3); Osmolality Calculated 305 mOsm/kg (285-295); Phosphorus 2.9 mg/dL (2.5-4.5); Sodium 146 mmol/L (136-145); Total Bilirubin 0.5 mg/dL (0.15-1.2); Total Protein 6.4 g/dL (6.6-8.7)
[2021-02-07 10:31] LABS: Anion Gap 14.2 (5-19); Potassium 4.2 mmol/L (3.5-5.1)
--- NOTE | 2021-02-07 12:07 | P.DS_ITS ---
Discharge Providers Date of Admission: 02/06/21 14:01 Date of Discharge: February 07, 2021 Attending Provider at Admission: Rito Hitchcock MD Attending Provider at Discharge: Rito Hitchcock MD Diagnoses at Discharge Discharge Diagnosis (1) Facial droop: Status: Acute (2) History of coronary artery disease: Status: Acute (3) Physical deconditioning: Status: Acute (4) History of dementia: Status: Acute (5) History of hypertension: Status: Acute (6) History of TIA (transient ischemic attack): Status: Acute Reason for Visit Reason for Visit: neuro symptoms Hospital Course Hospital Course This is a 70 this is a 70-year-old male with a past medical history of CAD, CVA, hypertension, history of left lower extremity amputation who presents to [facility] due to right facial droop, and inability to close right eyelid. Facial droop: -Right lower face facial droop, sparing of forehead, inability to close right eyelid fully, moderate -Did have a spider bite roughly 2 weeks ago -No history of shingles, no history of HIV, no history of ear pain or otitis media -Does have a history of TIA or cva patient unsure -Initial CT of the head no acute stroke, intracranial bleed -NIH stroke scale 2, out of TPA window, neurologist at [facility] contacted, recommended inpatient monitoring with MRI -Differential includes CVA versus Zayas's palsy, likely Zayas's palsy -MRI of the head and brain no acute findings -Carotid artery ultrasound shows greater than 70% left ICA stenosis, however CTA of the head and neck did not show any significant carotid artery stenosis, confirmed with physicians IV rads -TSH within normal limits, HIV negative, rheumatoid factor elevated -Patient was managed with aspirin, statin, is on Plavix, placed on high-dose prednisone, IV doxycycline clinically monitored -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's palsy I have discharged him on acyclovir 400 mg 5 times daily for the next 10 days -Given his history of tick bite, and Zayas's palsy I have discharged him on doxycycline for 14 days -Patient should follow-up with outpatient physician and neurology for tick panel -For now-continue aspirin, statin, Plavix until patient follows up with neurology -Patient was advised to monitor for bloody or black stools if so go to emergency room -For his inability to close her right eyelid, I have discharged him on artificial triggers, I have left discharge instructions for meticulous management of inability to close right eyelid due to risk of corneal abrasion and corneal drying and permanent damage. During the night, eyedrops should be placed, and then the right eyelid should be taped with water resistant tape -Follow-up with neurology as he might require alternative treatment for inability to close right eyelid -I have discharged him in the care of his caregiver who helps him with activities of daily living, as he has deconditioning, and is dependent on his caregiver Physical Exam Const: COMMON NORMALS: no acute distress, patient oriented x3 and alert ORIENTATION/CONSCIOUSNESS: Yes oriented to person and Yes oriented to place; not oriented to time HENMT: COMMON NORMALS: normocephalic HEAD & SCALP: normocephalic Eye: COMMON NORMALS: Equal, round and reactive pupils present and EOMs intact bilaterally PUPIL: Yes Equal, round and reactive pupils present Lymph: LYMPHATIC: no lymphadenopathy noted Resp: COMMON NORMALS: normal respiratory effort, No retractions, No use of accessory muscles and clear to auscultation bilaterally AUSCULTATION: clear to auscultation bilaterally Cardio: COMMON NORMALS: regular rate, regular rhythm, S1 normal heart sound present, S2 normal heart sound present, No gallops present (Cardio), No clicks present (Cardio) and No murmurs present (Cardio) RATE: regular rate RHYTHM: regular rhythm HEART SOUNDS: S1 normal heart sound present and S2 normal heart sound present GI: COMMON NORMALS: Normal to inspection, nondistended, normoactive bowel sounds present, Soft to palpation and non-tender PALPATION: Yes Soft to palpation Extremity: COMMON NORMALS: no pedal edema Neuro: COMMON NORMALS: patient oriented x3, moves all extremities, no focal motor deficits and no sensory deficits noted SENSORIUM/ORIENTATION: Yes alert, Yes oriented to person, Yes oriented to place and No oriented to time CRANIAL NERVES: Yes pupillary reactivity/size SPEECH: speech normal OTHER: Right facial droop, moderate Right upper face, slight inability to frown, inability to fully close right eyelid Discharge Data Data Completed and Pending: Completed Studies During Hospitalization Category Date Time Status CT angio headneck * [id number] Stat Cat Scan 02/06/21 10:[address] head wo con* [id number] 1307 Stat Cat Scan 02/05/21 14:37 Completed XR chest 1V katelyn ble [id number] Stat Exams 02/05/21 14:37 Completed MR head wo con* 7 [id number] Stat MRI 02/05/21 15:47 Completed CV carotid duplex BI* [id number] Routine Ultrasound 02/06/21 18:39 Completed Pending at discharge Category Date Time Status PAUL Profile Rheum atology Stat Lab 02/05/21 17:00 Received Complete Blood Co unt w/Auto AM LABS Lab 02/08/21 04:00 Ordered Complete Blood Co unt w/Auto AM LABS Lab 02/09/21 04:00 Ordered Comprehensive Met abolic Panel AM LA BS Lab 02/08/21 04:00 Ordered Comprehensive Met abolic Panel AM LA BS Lab 02/09/21 04:00 Ordered Drug Screen, Urin e Stat Lab 02/05/21 14:37 Uncollected Magnesium AM LABS Lab 02/08/21 04:00 Ordered Magnesium AM LABS Lab 02/08/21 04:00 Ordered Magnesium AM LABS Lab 02/09/21 04:00 Ordered Phosphorus AM LAB S Lab 02/08/21 04:00 Ordered Phosphorus AM LAB S Lab 02/08/21 04:00 Ordered Phosphorus AM LAB S Lab 02/09/21 04:00 Ordered Tick Panel Stat Lab 02/05/21 17:00 Received Urinalysis Stat Lab 02/05/21 14:37 Uncollected CV echo complete* [id number] Routine Ultrasound 02/06/21 18:39 Taken Labs from last 24 hours 02/07/21 02/07/21 02/07/21 09:34 06:23 06:23 WBC 9.8 RBC 4.94 Hgb 15.3 Hct 49.7 MCV 100.6 H MCH 31.0 MCHC 30.8 RDW 15.4 H Plt Count 206 MPV 11.4 H Neut % (Auto) 83.9 Lymph % (Auto) 10.7 [place] % (Auto) 4.6 Eos % (Auto) 0.0 Baso % (Auto) 0.2 Neut # (Auto) 8.19 H Lymph # (Auto) 1.0 [place] # (Auto) 0.5 Eos # (Auto) 0.0 Baso # (Auto) 0.0 Nucleated RBC % (a uto) 0 Nucleated RBCs # 0.0 Sodium 146 H Cancelled Potassium 4.2 Cancelled Chloride 114 H Cancelled Carbon Dioxide 22 Cancelled Anion Gap 14.2 Cancelled BUN 18 Cancelled Creatinine 0.6 L Cancelled GFR Calculation Not Reportable Cancelled Glucose 121 H Cancelled Calculated Osmolal ity 305 H Cancelled Calcium 9.0 Cancelled Phosphorus 2.9 Cancelled Magnesium 2.1 Cancelled Total Bilirubin 0.5 Cancelled AST 19 Cancelled ALT 14 Cancelled Alkaline Phosphata se 72 Cancelled Troponin T Baselin e Troponin T 120 Min [place] Delta Troponin T Troponin T Hi Sens 6Hr Troponin T Hi Sens 6Hr Delta Total Protein 6.4 L Cancelled Albumin 3.7 Cancelled Globulin 2.7 Cancelled 02/07/21 02/06/21 02/06/21 01:27 22:05 19:25 WBC RBC Hgb Hct MCV MCH MCHC RDW Plt Count MPV Neut % (Auto) Lymph % (Auto) [place] % (Auto) Eos % (Auto) Baso % (Auto) Neut # (Auto) Lymph # (Auto) [place] # (Auto) Eos # (Auto) Baso # (Auto) Nucleated RBC % (a uto) Nucleated RBCs # Sodium Potassium Chloride Carbon Dioxide Anion Gap BUN Creatinine GFR Calculation Glucose Calculated Osmolal ity Calcium Phosphorus Magnesium Total Bilirubin AST ALT Alkaline Phosphata se Troponin T Baselin e 14 Troponin T 120 Min [place] 10.80 Delta Troponin T -3.20 L Troponin T Hi Sens 6Hr 11.29 Troponin T Hi Sens 6Hr Delta -2.71 L Total Protein Albumin Globulin 02/06/21 13:30 WBC RBC Hgb Hct MCV MCH MCHC RDW Plt Count MPV Neut % (Auto) Lymph % (Auto) [place] % (Auto) Eos % (Auto) Baso % (Auto) Neut # (Auto) Lymph # (Auto) [place] # (Auto) Eos # (Auto) Baso # (Auto) Nucleated RBC % (a uto) Nucleated RBCs # Sodium Potassium Chloride Carbon Dioxide Anion Gap BUN Creatinine GFR Calculation Glucose Calculated Osmolal ity Calcium Phosphorus Magnesium Total Bilirubin AST ALT Alkaline Phosphata se Troponin T Baselin e 16 H Troponin T 120 Min [place] Delta Troponin T Troponin T Hi Sens 6Hr Troponin T Hi Sens 6Hr Delta Total Protein Albumin Globulin Vitals: Last Vital Signs Temp 97.5 F L 02/07/21 11:30 Pulse 56 L 02/07/21 11:30 Resp 18 02/07/21 11:30 BP 157/65 02/07/21 11:30 Pulse Ox 96 02/07/21 11:30 Discharge Plan Discharge Patient Disposition: Home Condition: Stable Prescriptions: New aspirin 81 mg Tablet,Delayed Release (Dr/Ec) 81 mg PO DAILY 30 Days Qty: 30 RF: 0 atorvastatin 40 mg Tablet 40 mg PO Q24H 30 Days Qty: 30 RF: 0 acyclovir 400 mg tablet 400 mg PO 5XD 10 Days Qty: 50 RF: 0 doxycycline hyclate 100 mg tablet 100 mg PO BID 12 Days Qty: 24 RF: 0 nicotine 21 mg/24 hr Patch 24 Hour 1 patch transdermal DAILY Qty: 28 RF: 0 prednisone 20 mg Tablet 80 mg PO DAILY 6 Days Qty: 24 RF: 0 Isopto Tears 0.5 % Drops 1 drp eye-right Q4H 30 Days Qty: 60 RF: 3 Continued donepezil 10 mg tablet 10 mg PO DAILY RF: 0 clopidogrel 75 mg tablet 75 mg PO DAILY RF: 0 escitalopram oxalate 10 mg tablet 10 mg PO DAILY RF: 0 Combivent Respimat 20-100 mcg/actuation mist 1 puff INHALATION DAILY RF: 0 multivitamin Tablet 1 tab PO DAILY RF: 0 Discharge Orders: Discharge Order (Routine); Ordered 02/07/21 Ordered By: Rito Hitchcock Referrals: Tika Dalal MD [Physician] - 4-7 days (moderate zayas pasy) Discharge Diet: Cardiac Discharge Activity: Resume usual activity Patient Instructions: Opioid Safety Activity Restrictions/Additional Instructions: -please follow up with neurology in 1 week -You require meticulous right eye care, eyedrops every 4 hours during the day, to decrease risk of corneal drying, and corneal abrasion -During the night, you should place eyedrops, and use a waterproof tape to close the right eyelid to prevent drying of the cornea -Please follow-up with neurology, if you continue to have incomplete closure of the right eyelid, we might need to consider other treatments -For now continue aspirin, statin, Plavix until you see neurology -Doxycycline for tick bite -And acyclovir 5 times daily as you have moderate to severe Zayas's palsy -Please drink plenty of electrolyte balance fluids -Follow-up with primary care in 1 week for recheck blood work including kidney function Discharge Attestations Time Spent in Discharge Care*: greater than 30 min Quality Metrics Clinical Quality Measures During this hospital stay, did patient experience: None Coding Level of Care Code Acute Chg FW DC note Diagnoses Facial droop R29.810 History of coronary artery disease Z86.79 Physical deconditioning R53.81 History of dementia Z86.59 History of hypertension Z86.79 History of TIA (transient ischemic attack) Z86.73
[2021-02-09 12:22] LABS: COMPLEMENT COMPONENT C3C 87 mg/dL (82-185); COMPLEMENT COMPONENT C4C 14 mg/dL (15-53)
[2021-02-09 14:02] LABS: COMPLEMENT, TOTAL (CH50) 47 U/mL (31-60)
[2021-02-09 15:49] LABS: Lyme AB Screen <0.90 index
--- NOTE | 2021-02-10 16:31 | PC.RESP ---
Smoking Cessation information sent to patient.
[2021-02-11 13:47] LABS: ANA SCREEN, IFA NEGATIVE (NEGATIVE); CENTROMERE B ANTIBODY <1.0 NEG AI (<1.0 NEG); JO-1 ANTIBODY <1.0 NEG AI (<1.0 NEG); RNP ANTIBODY <1.0 NEG AI (<1.0 NEG); SCL-70 ANTIBODY <1.0 NEG AI (<1.0 NEG); SJOGREN'S ANTIBODY (SS-A) <1.0 NEG AI (<1.0 NEG); SM ANTIBODY <1.0 NEG AI (<1.0 NEG); SS-B <1.0 NEG AI (<1.0 NEG)
[2021-02-11 16:33] LABS: RMSF IGG NOT DETECTED; RMSF IGM NOT DETECTED
[2021-02-11 17:03] LABS: E. Chaffeensis AB IGG <1:64; E. Chaffeensis AB IGM <1:20
[2021-02-11 17:39] LABS: THYROID PEROXIDASE ANTIBODIES 27 IU/mL (<9)
[2021-02-13 00:43] LABS: DNA AB (DS) CRITHIDIA,IFA NEGATIVE (NEGATIVE)
== END 2021-02-07 17:30 | disposition home or self-care (01) | DRG 74 ==
LOC: ER 16:02 → MEDSURG 16:38
PROVIDERS: Admitting Provider Family Medicine; Emergency Provider Family Medicine; Visit Provider Family Medicine
DX: G51.0 Bell's palsy (principal); I25.10 Atherosclerotic heart disease of native coronary artery without angina pectoris; Z95.5 Presence of coronary angioplasty implant and graft; Z89.512 Acquired absence of left leg below knee; F03.90 Unspecified dementia, unspecified severity, without behavioral disturbance, psychotic disturbance, mood disturbance, and anxiety; Z86.73 Personal history of transient ischemic attack (TIA), and cerebral infarction without residual deficits; Z99.3 Dependence on wheelchair; F17.210 Nicotine dependence, cigarettes, uncomplicated; I10 Essential (primary) hypertension; T63.301A Toxic effect of unspecified spider venom, accidental (unintentional), initial encounter; R32 Unspecified urinary incontinence; I65.22 Occlusion and stenosis of left carotid artery; Z79.02 Long term (current) use of antithrombotics/antiplatelets
CPT/HCPCS: 36415; 36416; 70450; 70496; 70498; 70551; 71045; 80053; 80061; 82962; 83036; 83735; 83880; 84100; 84443; 84484; 85025; 85610; 85651; 85730; 86140; 86160; 86162; 86235; 86255; 86376; 86431; 86618; 86666; 86757; 87806; 92507; 92523; 92526; 92610; 93005; 93306; 93880; 94664; 96372; 97161; 97165; 97530; 99285; G0378; J1650; J3490; J7030; J7512; Q9967

== ENCOUNTER → 2021-02-17 08:13 | Outpatient (BNVA) | payer MEDICARE, MEDICAID, SELFPAY | PROVIDERS: PCP Nurse Practitioner; Visit Provider Specialist | DX: G51.0 Bell's palsy (principal); G30.9 Alzheimer's disease, unspecified; F02.80 Dementia in other diseases classified elsewhere, unspecified severity, without behavioral disturbance, psychotic disturbance, mood disturbance, and anxiety; R93.89 Abnormal findings on diagnostic imaging of other specified body structures; F17.210 Nicotine dependence, cigarettes, uncomplicated | CPT/HCPCS: 99205 ==